=== PATIENT | male | born 1990 | race Caucasian/White ===

== ENCOUNTER 2017-01-31 16:23 | Emergency (ER) | payer SELFPAY ==
[~2017-01-31] VITALS: Ht 172.7 cm; Wt 81.2 kg
[~2017-01-31 16:23] MED LIST: ERYTHROMYC3.5 GM/TUB OP; FLEXERIL10 MG PO; NAPROXEN SODIU500 MG PO; NOMEDS *; TORADOL10 MG PO
--- NOTE | 2017-01-31 16:42 | Emergency Room Report ---
History of Present Illness Time Seen by MD Lama Presenting Problem in Triage Pt arrived:Walked Presenting Problem:ABDOMINAL PAIN X3 DAYS. NOW WITH NAUSEA, VOMITING, AND DIARRHEA. 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 N Clinical Suspician of Infection? N Mental Status: 1 - Regular (Normal Baseline) Sepsis Risk:Low Sepsis Risk Have you (or family members/close friends) recently traveled outside the [place]? N If Yes, where/when: Have you had exposure to infectious disease within the past month? N TB? Other? Specify: Patient complains of abdominal pain is been ongoing for the past 3 days he states it started in his epigastric area and moved more down to his umbilicus where he has nausea vomiting and diarrhea crampy moderate no radiation to the back denies fevers or chills. ALLERGIES Coded Allergies: acetaminophen (01/31/17) hydrocodone (01/31/17) Home Medications Reported Medications No Home Medications (NO HOME MEDICATIONS) 1 X * ONCE History Medical History General CAD? No Angina: No [place]: No Hypertension? No Hyperlipidemia? No CHF? No DVT? No PE? No COPD? No Asthma? No GERD? No Gastric ulcers? No GI Bleed? No Hernia? No Thyroid Problems? No Hypothyroidism? No CVA? No Seizures? Yes Diabetes? No Renal Insuffiency? No End Stage Renal Disease? No UTI? No Stones? No BPH? No GB Disease: No Nephritic Syndrome? No Asplenia? No Hepatitis? No Sickle Cell Disease? No Arthritis? No Migraines? No Cataracts? No Glaucoma? No MRSA? No HIV? No TB? No Anxiety? No Depression? No Cancer? No More? No Immunization Hx DT/Tetanus 5-10 Years Ago Surgical Hx Previous Surgery?N Social History Smoking Hx Smoker: Current Every Day Smoker Tobacco: Yes Type Cigarettes Packs/day < 1 Pack Alcohol Alcohol: Yes Review of Systems All Other Systems Reviewed and Negative Physical Exam Vital Signs Vital Signs Date Time Temp Pulse Resp B/P Pulse O2 O2 Flow FiO2 Ox Delivery Rate 01/31 1714 97.8 85 16 147/84 99 01/31 1627 97.8 87 16 130/100 98 General Appearance: Nontoxic Head: Normocephalic, without obvious abnormality, atraumatic. Eyes: conjunctiva/corneas clear ENT: Mucous membranes moist. Neck: No jugular venous distention. Cardiac: regular rate and rhythm Lungs: Clear to auscultation bilaterally Abdomen: Some diffuse tenderness positive RIGHT lower quadrant tenderness, Nondistended, positive bowel sounds, no rebound : No CVA tenderness Extremities: no edema Musculoskeletal: No chest wall tenderness Skin: No rashes or lesions to exposed skin. Neurologic: Alert. No gross focal deficits Psychiatric: Normal affect (Mary NATARAJAN, Vlad) General Appearance normal appearance Respiratory Status No: respiratory distress. Cardiovascular normal exam Neurologic alert Medical Decision Making LABS/Meds/Orders Pt receiving controlled substance in ED? No Comment 539pm stress with radiologist he stated there was a distal terminal ileum colitis that would be classic for Crohn's disease she stated that the pancreas actually looked normal to him I did discuss the elevated lipase. Also stated that loose from 2011 CT Anna has granulomatous disease that TB would be in the differential for. I have discussed with staff to go ahead and put a mask on the patient, concern with TB in differential, no negative pressure room in ER. Patient's currently in the restroom now per his his states he's had a morning cough for the past couple months that he is a smoker. He will call out to our electrical line mechanic here [address] Sullivan electrical line mechanic he states the transfer to [facility]. call out to [facility] [address] natalee Bauman per protocol accepts to CARTER Pelaez MD accepting per protocol Results/Orders Laboratory Tests 01/31/17 1645: Sodium 138, Potassium 3.7, Chloride 103, Carbon Dioxide 25, BUN 10, Creatinine 0.8, Estimated Creat Clear 158, Estimated GFR (MDRD) 115, Glucose 90, Calcium 8.7, Total Bilirubin 0.5, AST 24, ALT 45, Alkaline Phosphatase 72, Total Protein 7.8, Albumin 3.6, Globulin 4.2 H, Albumin/Globulin Ratio 0.9 L, Amylase 171 H , Lipase 1125 H, WBC 10.3, RBC 5.35, Hgb 16.9, Hct 51.4, MCV 96.1, RDW 12.9, Plt Count 262, MPV 7.8, Gran % 64.1, Gran # 6.6, Lymphocytes % 26.1, Monocytes % 4.4, Eosinophils % 4.8, Basophils % 0.5, Lymphocytes # 2.7, Monocytes # 0.5, Eosinophils # 0.5 H, Basophils # 0.1, PUBS MCHC 32.8, MCH 31.5 H Current Medication Orders Sig/Grey Start time Last Medication Dose Route Stop Time Status Admin Sodium Chloride 10 ML PRN PRN 01/31 1645 AC IV 02/01 1635 Orders Procedure Date/time Status DIET-NOTHING BY MOUTH 01/[address] ABD & PELVIS W/O CONTRAST 01/[address] ABD/PELVIS REQ 01/31 1635 Complete IV SALINE LOCK 01/31 1635 Active LIPASE 01/31 1635 Complete COMPLETE METABOLIC PANEL 01/31 1635 Complete CBC WITH AUTO DIFF 01/31 1635 Complete AMYLASE 01/31 1635 Complete Departure Departure Time of Disposition 1801 Disposition DC/XFER from ER to [facility] Clinical Impression Primary Impression: Pancreatitis Qualifiers: Chronicity: acute Pancreatitis type: alcohol induced Acute pancreatitis complication: no infection or necrosis Qualified Code: K85.20 - Alcohol induced acute pancreatitis without necrosis or infection Secondary Impressions: Granulomatous lung disease Ileitis, terminal Qualifiers: Digestive disease complication type: without complication Qualified Code: K50.00 - Crohn's disease of small intestine without complications Condition STABLE ED Critical Care Critical Care No at 1802
--- NOTE | 2017-01-31 16:42 | Emergency Room Report ---
History of Present Illness Time Seen by MD Lama Presenting Problem in Triage Pt arrived:Walked Presenting Problem:ABDOMINAL PAIN X3 DAYS. NOW WITH NAUSEA, VOMITING, AND DIARRHEA. 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 N Clinical Suspician of Infection? N Mental Status: 1 - Regular (Normal Baseline) Sepsis Risk:Low Sepsis Risk Have you (or family members/close friends) recently traveled outside the [place]? N If Yes, where/when: Have you had exposure to infectious disease within the past month? N TB? Other? Specify: Patient complains of abdominal pain is been ongoing for the past 3 days he states it started in his epigastric area and moved more down to his umbilicus where he has nausea vomiting and diarrhea crampy moderate no radiation to the back denies fevers or chills. ALLERGIES Coded Allergies: acetaminophen (01/31/17) hydrocodone (01/31/17) Home Medications Reported Medications No Home Medications (NO HOME MEDICATIONS) 1 X * ONCE History Medical History General CAD? No Angina: No [place]: No Hypertension? No Hyperlipidemia? No CHF? No DVT? No PE? No COPD? No Asthma? No GERD? No Gastric ulcers? No GI Bleed? No Hernia? No Thyroid Problems? No Hypothyroidism? No CVA? No Seizures? Yes Diabetes? No Renal Insuffiency? No End Stage Renal Disease? No UTI? No Stones? No BPH? No GB Disease: No Nephritic Syndrome? No Asplenia? No Hepatitis? No Sickle Cell Disease? No Arthritis? No Migraines? No Cataracts? No Glaucoma? No MRSA? No HIV? No TB? No Anxiety? No Depression? No Cancer? No More? No Immunization Hx DT/Tetanus 5-10 Years Ago Surgical Hx Previous Surgery?N Social History Smoking Hx Smoker: Current Every Day Smoker Tobacco: Yes Type Cigarettes Packs/day < 1 Pack Alcohol Alcohol: Yes Review of Systems All Other Systems Reviewed and Negative Physical Exam Vital Signs Vital Signs Date Time Temp Pulse Resp B/P Pulse O2 O2 Flow FiO2 Ox Delivery Rate 01/31 1714 97.8 85 16 147/84 99 01/31 1627 97.8 87 16 130/100 98 General Appearance: Nontoxic Head: Normocephalic, without obvious abnormality, atraumatic. Eyes: conjunctiva/corneas clear ENT: Mucous membranes moist. Neck: No jugular venous distention. Cardiac: regular rate and rhythm Lungs: Clear to auscultation bilaterally Abdomen: Some diffuse tenderness positive RIGHT lower quadrant tenderness, Nondistended, positive bowel sounds, no rebound : No CVA tenderness Extremities: no edema Musculoskeletal: No chest wall tenderness Skin: No rashes or lesions to exposed skin. Neurologic: Alert. No gross focal deficits Psychiatric: Normal affect (Mary NATARAJAN, Vlad) General Appearance normal appearance Respiratory Status No: respiratory distress. Cardiovascular normal exam Neurologic alert Medical Decision Making LABS/Meds/Orders Pt receiving controlled substance in ED? No Comment 539pm stress with radiologist he stated there was a distal terminal ileum colitis that would be classic for Crohn's disease she stated that the pancreas actually looked normal to him I did discuss the elevated lipase. Also stated that loose from 2011 CT Anna has granulomatous disease that TB would be in the differential for. I have discussed with staff to go ahead and put a mask on the patient, concern with TB in differential, no negative pressure room in ER. Patient's currently in the restroom now per his his states he's had a morning cough for the past couple months that he is a smoker. He will call out to our refrigeration person here [address] Sullivan refrigeration person he states the transfer to [facility]. [facility] [address] natalee Bauman per protocol accepts to CARTER Pelaez MD accepting per protocol Results/Orders Laboratory Tests 01/31/17 1645: Sodium 138, Potassium 3.7, Chloride 103, Carbon Dioxide 25, BUN 10, Creatinine 0.8, Estimated Creat Clear 158, Estimated GFR (MDRD) 115, Glucose 90, Calcium 8.7, Total Bilirubin 0.5, AST 24, ALT 45, Alkaline Phosphatase 72, Total Protein 7.8, Albumin 3.6, Globulin 4.2 H, Albumin/Globulin Ratio 0.9 L, Amylase 171 H , Lipase 1125 H, WBC 10.3, RBC 5.35, Hgb 16.9, Hct 51.4, MCV 96.1, RDW 12.9, Plt Count 262, MPV 7.8, Gran % 64.1, Gran # 6.6, Lymphocytes % 26.1, Monocytes % 4.4, Eosinophils % 4.8, Basophils % 0.5, Lymphocytes # 2.7, Monocytes # 0.5, Eosinophils # 0.5 H, Basophils # 0.1, PUBS MCHC 32.8, MCH 31.5 H Current Medication Orders Sig/Grey Start time Last Medication Dose Route Stop Time Status Admin Sodium Chloride 10 ML PRN PRN 01/31 1645 AC IV 02/01 1635 Orders Procedure Date/time Status DIET-NOTHING BY MOUTH 01/[address] ABD & PELVIS W/O CONTRAST 01/[address] ABD/PELVIS REQ 01/31 1635 Complete IV SALINE LOCK 01/31 1635 Active LIPASE 01/31 1635 Complete COMPLETE METABOLIC PANEL 01/31 1635 Complete CBC WITH AUTO DIFF 01/31 1635 Complete AMYLASE 01/31 1635 Complete Departure Departure Time of Disposition 1801 Disposition DC/XFER from ER to [facility] Clinical Impression Primary Impression: Pancreatitis Qualifiers: Chronicity: acute Pancreatitis type: alcohol induced Acute pancreatitis complication: no infection or necrosis Qualified Code: K85.20 - Alcohol induced acute pancreatitis without necrosis or infection Secondary Impressions: Granulomatous lung disease Ileitis, terminal Qualifiers: Digestive disease complication type: without complication Qualified Code: K50.00 - Crohn's disease of small intestine without complications Condition STABLE ED Critical Care Critical Care No at 1802
[2017-01-31 17:00] LABS: HEMOGLOBIN 16.9 g/dL (14.1-18.0); LYMPH # 2.7 K/mm3 (0.7-4.5); LYMPH % 26.1 % (10-50)
[2017-01-31 18:46] VITALS: BP 147/84
--- NOTE | 2017-02-01 08:08 | RADIOLOGY REPORT PS360 ---
CT ABD PELVIS W/O CONTRAST COMPARISON: CT scan abdomen pelvis 03/15/2011 HISTORY: Abdominal pain and cramping for several days TECHNIQUE: Multiaxial scans obtained from hemidiaphragms the pelvic floor and were performed without IV or oral contrast. Sagittal coronal reformats were evaluated as well. FINDINGS: There are multiple too numerous to count pulmonary nodules of varying sizes in the lower lobes all having somewhat ill-defined borders. There is a dominant nodule fossa 1.5 cm in diameter within the lingula which is partially calcified and partially cavitated. The liver and spleen appear grossly normal though there are calcifications within the spleen. The stomach pancreas and gallbladder are grossly normal. There is a calcification within the left adrenal gland but this was noted previously and likely represents dystrophic calcification from previous trauma. The proximal and mid small bowel appear grossly normal, there is diffuse wall thickening. And mild haziness of the terminal ileum and this is somewhat worrisome for early Crohn's disease. The appendix is normal. There are scattered stool throughout the colon and there is mild diffuse wall thickening of the ascending and descending colon. The urinary bladder is decompressed. The prostate is normal. IMPRESSION: 1. Findings of the terminal ileum suggesting early Crohn's disease, possibly mild involvement of the colon as well. 2. Multiple bilateral lower lobe pulmonary nodules of varying sizes with somewhat hazy borders. Certainly metastatic disease and consideration but less likely in view of the patient's age. Donal's granulomatosis or possibly active histoplasmosis or tuberculosis are possibilities, I agree the [facility] report
--- OUTSIDE RECORDS SUMMARY | 2017-02-03 16:58 | External Medical Summary Rpt ---
Author Author , DELMA NGUYỄN Address Unknown Phone Purpose Continuity of Care Document - 01-31-2017 through 2016 Problems Code Diagnosis DOS Provider Status J84.10 PULMONARY FIBROSIS, UNSPECIFIED K50.00 CROHN'S DISEASE OF SMALL INTESTINE WITHOUT COMPLICATIO NS K85.90 ACUTE PANCREATITI S WITHOUT NECROSIS OR INFECTION, UNSP
--- OUTSIDE RECORDS SUMMARY | 2017-02-03 16:58 | External Medical Summary Rpt ---
Demographics Preferred Language Luxembourgish Marital Status Unknown Confucianist Affiliation Unknown Race Unknown Ethnic Group Unknown Author Author , DELMA NGUYỄN Address Unknown Phone Immunization Unable to retrieve immunization data due to connection failure with Immunization Registry. Please try again later.
--- OUTSIDE RECORDS SUMMARY | 2017-02-03 16:58 | External Medical Summary Rpt ---
Author Author DELMA Address Unknown Phone Purpose Continuity of Care Document - through 2016
--- OUTSIDE RECORDS SUMMARY | 2017-02-03 16:58 | External Medical Summary Rpt ---
Author Author DELMA Rodriguez, [employer] Address Unknown Phone Unavailable Results Amylase [Enzymatic activity/volume] in Serum or Plasma Observa Value Referen Units Interpr Notes Date tion ce etation Range Amylase 25 - 115 U/L High No Jan 31 [Enzymati informati 2017 4:45 c on in PM activity/ source volume] data in Serum or Plasma Comprehensive metabolic 2000 panel in Serum or Plasma Observa Value Referen Units Interpr Notes Date tion ce etation Range Albumin/G 1.1 - 1.8 No Low No Jan 31 lobulin informati informati 2016 4:45 [Mass on in on in PM ratio] in source source Serum or data data Plasma Albumin 3.4 - 5.0 gm/dL Normal No Jan 31 [Mass/vol informati 2016 4:45 ume] in on in PM Serum or source Plasma data Alkaline 46 - 116 U/L Normal No Jan 31 phosphata informati 2017 4:45 se on in PM [Enzymati source c data activity/ volume] in Serum or Plasma Bilirubin 0.2 - 1.0 mg/dL Normal No Jan 31 .total informati 2017 4:45 [Mass/vol on in PM ume] in source Serum or data Plasma Urea 7 - 18 mg/dL Normal No Jan 31 nitrogen informati 2017 4:45 [Mass/vol on in PM ume] in source Serum or data Plasma Calcium 8.5 - mg/dL Normal No Jan 31 [Mass/vol 10.1 informati 2017 4:45 ume] in on in PM Serum or source Plasma data Chloride 98 - 107 mmoL/L Normal No Jan 31 [Moles/vo informati 2016 4:45 lume] in on in PM Serum or source Plasma data Carbon 21.0 - mmoL/L Normal No Jan 31 dioxide, 32.0 informati 2017 4:45 total on in PM [Moles/vo source lume] in data Serum or Plasma Creatinin 0.70 - mg/dL Normal No Jan 31 e 1.30 informati 2017 4:45 [Mass/vol on in PM ume] in source Serum or data Plasma Creatinin 50 - 200 ML/MIN Normal No Jan 31 e renal informati 2016 4:45 clearance on in PM source predicted data by Cockcroft -Gault formula Estimated >60 ML/MIN No REFERENCE Jan 31 informati RANGE: 2017 4:45 glomerula on in >60 PM r source ML/MIN/1. filtratio data 73 SQUARE n rate METERSIf (GF this patient is -A merican, then multiply theresult by 1.210. Globulin 1.3 - 3.2 gm/dL High No Jan 31 [Mass/vol informati 2016 4:45 ume] in on in PM Serum source data Glucose 74 - 106 mg/dL Normal No Jan 31 [Mass/vol informati 2016 4:45 ume] in on in PM Serum or source Plasma data Potassium 3.5 - 5.1 mmoL/L Normal No Jan 31 informati 2016 4:45 [Moles/vo on in PM lume] in source Serum or data Plasma Sodium 136 - 145 mmoL/L Normal No Jan 31 [Moles/vo informati 2016 4:45 lume] in on in PM Serum or source Plasma data Aspartate 15 - 37 U/L Normal No Jan 31 informati 2016 4:45 aminotran on in PM sferase source [Enzymati data c activity/ volume] in Serum or Plasma Alanine 12 - 78 U/L Normal No Jan 31 aminotran ati 2016 4:45 sferase on in PM [Enzymati source c data activity/ volume] in Serum or Plasma Protein 6.4 - 8.2 gm/dL Normal No Jan 31 [Mass/vol informati 2016 4:45 ume] in on in PM Serum or source Plasma data Lipase [Enzymatic activity/volume] in Serum or Plasma Observa Value Referen Units Interpr Notes Date tion ce etation Range Lipase 73 - 393 U/L High Jan 31 [Enzymati NOTIFICAT 2016 4:45 c ION PM activity/ RESULT volume] in Serum or Plasma CBC W Auto Differential panel in Blood Observa Value Referen Units Interpr Notes Date tion ce etation Range Basophils 0 - 0.2 K/MM3 Normal No Jan 31 informati 2016 4:45 [#/volume on in PM ] in source Blood by data Automated count Basophils 0.1 - 2.0 % Normal No Jan 31 informati 2016 4:45 leukocyte on in PM s in source Blood by data Automated count Eosinophi 0.0 - 0.4 K/mm3 High No Jan 31 ls informati 2016 4:45 [#/volume on in PM ] in source Blood by data Automated count Eosinophi 0.1 - % Normal No Jan 31 ls/100 12.0 informati 2016 4:45 leukocyte on in PM s in source Blood by data Automated count Granulocy 1.3 - 8.0 K/mm3 Normal No Jan 31 rosey informati 2016 4:45 [#/volume on in PM ] in source Blood by data Automated count Granulocy 37.0 - % Normal No Jan 31 rosey/100 80.0 informati 2016 4:45 leukocyte on in PM s in source Blood by data Automated count Hematocri 42.0 - % Normal No Jan 31 t [Volume 52.0 informati 2016 4:45 on in PM Fraction] source of Blood data Hemoglobi 14.1 - g/dL Normal Jan 31 n 18.0 informati 2016 4:45 [Mass/vol on in PM ume] in source Blood data Lymphocyt 0.7 - 4.5 K/mm3 Normal No Jan 31 es informati 2016 4:45 [#/volume on in PM ] in source Unspecifi data ed specimen by Automated count Lymphocyt 10 - 50 % Normal No Jan 31 es 2016 4:45 [#/volume on in PM ] in source Unspecifi data ed specimen by Automated count Erythrocy 27 - 31.2 pg High No Jan 31 te mean informati 2016 4:45 corpuscul on in PM ar source hemoglobi data n [Entitic mass] Erythrocy 31.8 - g/dl Normal No Jan 31 te mean 35.4 informati 2016 4:45 corpuscul on in PM ar source hemoglobi data n concentra tion [Mass/vol ume] by Automated count Erythrocy 82.2 - fl Normal Jan 31 te mean 97.8 informati 2016 4:45 corpuscul on in PM ar volume source [Entitic data volume] by Automated count Monocytes 0.1 - 1.0 K/mm3 Normal No Jan 31 informati 2016 4:45 [#/volume on in PM ] in source Blood by data Automated count Monocytes 1.7 - 9.3 % Normal No Jan 31 informati 2017 4:45 leukocyte on in PM s in source Blood by data Automated count Platelet 7.4 - fl Normal No Jan 31 mean 10.4 informati 2017 4:45 volume on in PM [Entitic source volume] data in Blood by Automated count Platelets 142 - 424 K/mm3 Normal No Jan 31 informati 2017 4:45 [#/volume on in PM ] in source Blood data Erythrocy 4.6 - 6.2 M/mm3 Normal No Jan 31 rosey informati 2017 4:45 [#/volume on in PM ] in source Amniotic data fluid Erythrocy 11.5 - % Normal No Jan 31 te 17.5 informati 2017 4:45 distribut on in PM ion width source [Entitic data volume] by Automated count Leukocyte 4.8 - K/MM3 Normal No Jan 31 s 10.8 informati 2017 4:45 [#/volume on in PM ] in source Blood data
--- OUTSIDE RECORDS SUMMARY | 2017-02-03 16:58 | External Medical Summary Rpt ---
Author Author DELMA Rodriguez, [employer] Address Unknown Phone Unavailable [...]
--- OUTSIDE RECORDS SUMMARY | 2017-02-03 16:58 | External Medical Summary Rpt ---
Author Author DELMA Address Unknown Phone [email or web address] Purpose Continuity of Care Document - through 2016
--- OUTSIDE RECORDS SUMMARY | 2017-02-03 16:58 | External Medical Summary Rpt ---
Demographics Preferred Language [place] Marital Status Unknown Confucianism Affiliation Unknown Race Unknown Ethnic Group Unknown Author Author , DELMA NGUYỄN Address Unknown Phone Immunization Unable to retrieve immunization data due to connection failure with Immunization Registry. Please try again later.
--- OUTSIDE RECORDS SUMMARY | 2017-02-03 16:58 | External Medical Summary Rpt ---
Author Author , DELMA NGUYỄN Address Unknown Phone [email or web address] Purpose Continuity of Care Document - 01-31-2017 through 2016 Problems Code Diagnosis DOS Provider Status J84.10 PULMONARY FIBROSIS, UNSPECIFIED K50.00 CROHN'S DISEASE OF SMALL INTESTINE WITHOUT COMPLICATIO NS K85.90 ACUTE PANCREATITI S WITHOUT NECROSIS OR INFECTION, UNSP
== END 2017-01-31 18:48 | disposition short-term general hospital (02) ==
LOC: ER 16:23
PROVIDERS: Emergency Medicine
DX: K85.20 Alcohol induced acute pancreatitis without necrosis or infection (principal); K50.00 Crohn's disease of small intestine without complications; Z72.0 Tobacco use
CPT/HCPCS: J2405